=== PATIENT | female | born 1950 | race Two or more races ===

== ENCOUNTER 2024-05-17 10:47 | Emergency (ER) | payer OTHER ==
[~2024-05-17] VITALS: Ht 160 cm; Wt 52.2 kg
[2024-05-17] MEDS ORDERED: COZAAR50 MG PO (10:55)
[2024-05-17] MEDS ORDERED: SYNTHROID50 MCG (10:56)
[2024-05-17] MEDS ORDERED: NORVASC2.5 M1 PO (10:56)
[2024-05-17] MEDS ORDERED: GLUMETZA500 MG (10:56)
[2024-05-17] MEDS ORDERED: KETOROLAC TROMETHAMINE 30 MG VIAL ONE (12:41)
[2024-05-17] MEDS ORDERED: KETOROLAC TROMETHAMINE 30 MG VIAL IM ONE (12:45)
== END 2024-05-17 14:25 ==
LOC: ER 10:49
DX: S90.32XA Contusion of left foot, initial encounter (principal); X58.XXXA Exposure to other specified factors, initial encounter; Y93.89 Activity, other specified; Y92.89 Other specified places as the place of occurrence of the external cause; Y99.9 Unspecified external cause status; E11.9 Type 2 diabetes mellitus without complications; Z79.84 Long term (current) use of oral hypoglycemic drugs; I10 Essential (primary) hypertension; E06.3 Autoimmune thyroiditis
CPT/HCPCS: 73630; 96372; 99283; J1885

== ENCOUNTER → 2024-09-25 | Outpatient (CLI) | payer OTHER ==
[~2024-09-25] MED LIST: COZAAR50 MG PO; GLUMETZA500 MG; NORVASC2.5 M1 PO; SYNTHROID50 MCG
[2024-09-25 12:38] LABS: INR 1.09; PARTIAL THROMBOPLASTIN TIME 26.2 SECONDS (22.0-34.0); PROTHROMBIN TIME 11.8 SECONDS (9.0-11.5)
[2024-09-25 13:27] LABS: COL EPI 138 SECONDS (82-175)
== END | disposition home or self-care (01) ==
LOC: LAB 11:29
PROVIDERS: ATTEND Internal Medicine
DX: K62.5 Hemorrhage of anus and rectum (principal)

== ENCOUNTER 2024-10-14 11:42 | Outpatient (CLI) | payer OTHER | END 2024-10-14 11:48 | disposition home or self-care (01) | LOC: RAD 11:42 | PROVIDERS: ATTEND Orthopaedic Surgery | DX: S92.315D Nondisplaced fracture of first metatarsal bone, left foot, subsequent encounter for fracture with routine healing (principal); S92.415D Nondisplaced fracture of proximal phalanx of left great toe, subsequent encounter for fracture with routine healing; S92.425D Nondisplaced fracture of distal phalanx of left great toe, subsequent encounter for fracture with routine healing; X58.XXXD Exposure to other specified factors, subsequent encounter ==